=== PATIENT | female | born 1940 | race Caucasian/White ===

== ENCOUNTER 2022-08-16 09:48 | Emergency (ER) | payer OTHER ==
[2022-08-16 10:40] LABS: Absolute Lymphocytes (CBC) 0.9 K/uL (0.7-4.9); Hematocrit 36.6 % (36.0-45.0); Lymphocytes % 6.1 % (15.3-44.8); MCV 87.5 fL (80-100); MPV 8.1 fL (7.6-11.3); RBC Red Blood Cell Count 4.18 M/uL (3.86-4.86)
[2022-08-16 11:04] LABS: AST/SGOT 13 U/L (15-37); Albumin 2.8 g/dL (3.4-5.0); Alkaline Phosphatase 116 U/L (45-117); BUN Blood Urea Nitrogen 41 mg/dL (7-18); Bicarbonate 24 mmol/L (21-32); Bilirubin Total 0.6 mg/dL (0.2-1.0); Glomerular Filtration Rate 32 ml/min (=/>90); Glucose Level 157 mg/dL (74-106); Magnesium 3.1 mg/dL (1.8-2.4); NT PRO-BNP 244 pg/mL (<450); Potassium 4.8 mmol/L (3.5-5.1); Sodium Level 135 mmol/L (136-145); Troponin High Sensitivity 14.1 pg/mL (<58.9)
--- NOTE | 2022-08-16 11:15 | RAD REPORT ---
EXAM DESCRIPTION: US - Extremity Venous Uni Ltd - 08/16/2022 10:54 am CLINICAL HISTORY: SWELLING COMPARISON: None. TECHNIQUE: Real-time sonographic evaluation of the left lower extremity deep venous system was perfo rmed. FINDINGS: Hyperechoic and hypoechoic thrombus is present filling the lumen of the left common femora l, superficial femoral, popliteal and posterior tibial veins. Thrombus extends into the greater saphe nous vein at the junction with the common femoral vein. No mass or abnormal fluid collection in the l eft lower extremity. IMPRESSION: Left lower extremity deep venous thrombosis extending along the entire length of the lef t lower extremity.
[2022-08-16 11:37] LABS: ALT/SGPT < 10 U/L (12-78)
[2022-08-16 11:50] LABS: Protime INR 0.96
[2022-08-16] MEDS ORDERED: METHYLPREDNISOLONE 125 MG INJ ONE (12:02)
[2022-08-16] MEDS ORDERED: DIPHENHYDRAMINE 50 MG/ML VIAL ONE (12:02)
--- NOTE | 2022-08-16 12:32 | RAD REPORT ---
EXAM DESCRIPTION: CT - Chest For Pe Angio - 08/16/2022 12:07 pm CLINICAL HISTORY: DVT in LLE on US with SOB , history of lung cancer and COPD, shortness of breath COMPARISON: Extremity Venous Uni Ltd dated 08/16/2022 TECHNIQUE: Dynamically enhanced 3 mm thick images of the chest were obtained during administration o f approximately 150mL Isovue 370 IV contrast. Coronal and oblique MIP reconstruction images were gene rated and reviewed. Exam utilizes a protocol to evaluate the pulmonary arterial tree. All CT scans are performed using dose optimization technique as appropriate and may include automated exposure control or mA/KV adjustment according to patient size. FINDINGS: Left-sided pulmonary arterial tree is clear of thrombus. No acute or suspicious findings i n the left lung field. There is no left-sided pneumothorax or pleural effusion. Patient has a history of lung cancer but no comparison imaging at this facility. There is soft tissue mass in the right hilum encircling the the right mainstem bronchus and continuing inferiorly around the bronchus intermedius. There is a 3.5 x 2.5 centimeter soft tissue mass component that extends int o the right pulmonary artery. This is favored to be direct tumor invasion rather than a local pulmona ry embolus. Distal to this focal mass there is no downstream pulmonary emboli. There is atelectasis o f the adjacent lung parenchyma as well. Exact dimensions of the mass are difficult to obtain. There a ppears be early invasion in the posterior chest wall. No right-sided pleural effusion or pneumothorax . The aorta as imaged shows no acute or suspicious finding. No pericardial thickening or effusion. No left hilar mass or lymphadenopathy. The posteromedial and right perihilar malignant mass component extends into the subcarinal region. No upper mediastinal lymphadenopathy. No axillary lymphadenopathy. IMPRESSION: Malignant mass in the posteromedial right lung field involving the right hilum. The mass encircles the right mainstem bronchus and bronchus intermedius with extension into the subcarinal re gion of the mediastinum. A 3.5 centimeter soft tissue mass component of the malignancy is present within the distal right pulm onary artery at the bifurcation into the right middle lobe and right lower lobe arteries. This is fav ored to be tumor invasion rather than non tumor thrombus. No pulmonary emboli seen distal to this foc al filling defect.
--- NOTE | 2022-08-16 13:33 | EDPHYS ---
Physician Documentation [facility] Name: Zaira Hooker Age: 82 yrs Sex: Female : 1940 Arrival Date: 08/16/2022 Time: 09:53 Bed 5 Private MD: ED Physician Yisel Gastelum HPI: 08/16 11:07 This 82 yrs old Female presents to ER via Ambulatory with complaints of Breathing sd2 Difficulty, Leg Swelling. 11:07 82-year-old female presents with chief complaint of worsening shortness of breath and sd2 left lower extremity swelling. [place] due to concern for D[place]. She reports she initially had some difficulty with her breathing at the end of June and was seen the first week of July at her doctor's office and prescribed more albuterol for her COPD. She reports albuterol however was not helping at home. She followed up today and they noticed left lower extremity edema and had a concern for DVT and PE. The patient has no prior history of DVTs and is not currently on any blood thinners. However, she has not able to be very ambulatory due to the level of her COPD. She denies any significant pain to the lower extremity. She also reports a subjective fever that she noticed today.. Historical: - Allergies: 11:03 Codeine; jh5 11:59 Iodine (Hives); pre-medicating works; jl7 - PMHx: 11:03 lung cancer; copd; Hypertensive disorder; jh5 - Immunization history:: Adult Immunizations up to date, . - Social history:: Smoking status: Patient denies any tobacco usage or history of. ROS: 11:07 Eyes: Negative for injury, pain, redness, and discharge, ENT: Negative for injury, sd2 pain, and discharge, Cardiovascular: Negative for chest pain, palpitations, Positive for edema Respiratory: Positive for shortness of breath and cough. Negative for wheezing. Abdomen/GI: Negative for abdominal pain, nausea, vomiting, diarrhea. MS/Extremity: Negative for injury and deformity. Positive for swelling. Skin: Negative for injury, rash, and discoloration, Neuro: Negative for headache, numbness and tingling. 11:07 Constitutional: Positive for fever, Negative for body aches, chills, weight loss. Exam: 11:07 Constitutional: This is a well developed, well nourished patient who is awake, alert, sd2 and in no acute distress. Head/Face: Normocephalic, atraumatic. Eyes: EOMI, normal conjunctiva bilaterally Chest/axilla: Normal chest wall appearance and motion. Nontender with no deformity. Cardiovascular: Regular rate and rhythm with a normal S1 and S2. No gallops, murmurs, or rubs. 2+ distal pulses. Respiratory: Lungs have equal breath sounds bilaterally, clear to auscultation and percussion. No rales, rhonchi or wheezes noted. No increased work of breathing, no retractions or nasal flaring. Abdomen/GI: Soft, non-tender, with normal bowel sounds. No guarding or rebound. No evidence of tenderness throughout. Skin: Warm, dry with normal turgor. Normal color with no rashes, no lesions, and no evidence of cellulitis. MS/ Extremity: Pulses equal, no cyanosis. Neurovascular intact. Full, normal range of motion. LLE edema present with some mild discoloration of the leg Psych: Awake, alert, with orientation to person, place and time. Behavior, mood, and affect are within normal limits. 11:21 ECG was reviewed by the Attending Physician. NSR, rate 83, no STEMI criteria, premature sd2 supraventricular complexes present Vital Signs: 10:59 BP 111 / 63; Pulse 91; Resp 22; Pulse Ox 94% ; Weight 72.57 kg; Height 5 ft. 7 in. jh5 (170.18 cm); Pain 6/10; 11:50 BP 130 / 61; Pulse 85; Resp 15; Pulse Ox 94% ; jl7 12:30 BP 116 / 53; Pulse 82; Resp 15; Pulse Ox 96% ; jl7 14:03 BP 120 / 62; Pulse 80; Resp 17; Temp 97.7(O); Pulse Ox 96% ; Pain 3/10; jh6 10:59 Body Mass Index 25.06 (72.57 kg, 170.18 cm) 5 MDM: 10:59 Patient medically screened. sd2 11:07 Differential diagnosis: Differential diagnosis includes but is not limited to: ACS, sd2 DVT/PE, pneumothorax, dissection, musculoskeletal, anxiety, anemia, electrolyte abnormality, pneumonia, CHF, COPD among others. Data reviewed: vital signs, nurses notes. 13:30 Data reviewed: lab test result(s), EKG, radiologic studies. Counseling: I had a sd2 detailed discussion with the patient and/or guardian regarding: the historical points, exam findings, and any diagnostic results supporting the discharge/admit diagnosis, lab results, radiology results, the need for outpatient follow up, to return to the emergency department if symptoms worsen or persist or if there are any questions or concerns that arise at home. Medical screen evaluation completed[facility] ED course: Labs and imaging reviewed. Labs grossly WNCL aside from elevated D-dimer. US positive for DVT in LLE. Will treat with dose of Lovenox in ED and give prescription for patient to start Eliquis. No evidence of PE on CT but does show possible recurrence of patient's cancer with malignant appearing mass. Pt has not followed up regarding her cancer since pre-pandemic. [facility] this and need for biopsy. She is comfortable with plan for discharge and outpatient follow up. Verbalizes understanding of strict return precautions. . 08/16 09:54 Order name: CBC with Diff; Complete Time: 10:43 08/16 09:54 Order name: CMP; Complete Time: 11:51 08/16 09:54 Order name: Magnesium; Complete Time: 11:51 08/16 09:54 Order name: Troponin High Sensitivity; Complete Time: 11:51 08/16 09:54 Order name: BNP; Complete Time: 11:51 08/16 09:54 Order name: Procalcitonin; Complete Time: 11:51 08/16 09:54 Order name: D-Dimer; Complete Time: 11:51 08/16 09:54 Order name: US Extremity Venous Unilateral Ltd; Complete Time: 11:51 08/16 09:54 Order name: XRAY Chest (1 view) 08/16 11:07 Order name: CT Chest For PE Angio; Complete Time: 13:19 08/16 11:07 Order name: Ptt, Activated; Complete Time: 11:51 08/16 11:07 Order name: PT-INR; Complete Time: 11:51 sd2 Administered Medications: 11:53 Drug: SOLU-Medrol (methylPrednisoLONE) 125 mg Route: IVP; Site: left antecubital; jl7 11:55 Drug: Benadryl (diphenhydrAMINE) 25 mg Route: IVP; Site: left antecubital; 7 13:37 Drug: Lovenox (enoxaparin) 1 mg/kg Route: Sub-Q; Site: abdomen; [facility] Disposition Summary: 08/16/22 13:33 Discharge Ordered Location: Home sd2 Problem: new sd2 Symptoms: are unchanged sd2 Condition: Stable sd2 Diagnosis - DVT of Left Lower Extremity sd2 - Pulmonary mass sd2 Followup: sd2 - With: Private Physician - When: 2 - 3 days - Reason: Recheck today's complaints, Continuance of care, Re-evaluation by your physician Discharge Instructions: - Discharge Summary Sheet sd2 - Deep Vein Thrombosis sd2 - Lung Mass sd2 Forms: - Medication Reconciliation Form sd2 - Thank You Letter sd2 - Antibiotic Education sd2 - Prescription Opioid Use sd2 Prescriptions: - Eliquis DVT-PE Treat 30D Start 5 mg (74 tabs) Oral tablets,dose pack - take 1 tablet by ORAL route once daily Take as directed on package labeling; 1 [facility] packet; Refills: 0, Product Selection Permitted Signatures: Dispatcher [employer] Marco Machuca RN RN jl7 Mechelle Darnell RN RN jh5 Brandi Cárdenas RN RN jh6 Yisel Gastelum MD MD sd2 Corrections: (The following items were deleted from the chart) 11:03 11:03 Allergies: No Known Allergies; [place] [id number]
--- NOTE | 2022-08-16 13:33 | ER ---
Nurse's Notes [facility] Name: Zaira Hooker Age: 82 yrs Sex: Female : 1940 Arrival Date: 08/16/2022 Time: 09:53 Bed 5 Private MD: Diagnosis: DVT of Left Lower Extremity;Pulmonary mass Presentation: 08/16 10:59 Chief complaint: Patient states: pt went to [place] [facility] and they noticed her legs were jh5 two different sizes. Pt left leg significantly larger than right. Coronavirus screen: Vaccine status: Patient reports receiving the 2nd dose of the covid vaccine. Client denies travel out of the [place] in the last 14 days. Ebola Screen: Patient negative for fever greater than or equal to 101.5 degrees Fahrenheit, and additional compatible Ebola Virus Disease symptoms Patient denies exposure to infectious person. Patient denies travel to an Ebola-affected area in the 21 days before illness onset. Initial Sepsis Screen: Does the patient meet any 2 criteria? No. Patient's initial sepsis screen is negative. Does the patient have a suspected source of infection? No. Patient's initial sepsis screen is negative. Risk Assessment: Do you want to hurt yourself or someone else? Patient reports no desire to harm self or others. Onset of symptoms. 10:59 Method Of Arrival: Ambulatory [facility] 10:59 Acuity: LILO 2 jh5 Triage Assessment: 11:03 General: Appears uncomfortable, slender, well groomed, Behavior is calm, cooperative, jh5 appropriate for age. Pain:. Respiratory: Reports shortness of breath at rest Onset: The symptoms/episode began/occurred gradually, the patient has moderate shortness of breath. Historical: - Allergies: 11:03 Codeine; jh5 11:59 Iodine (Hives); pre-medicating works; jl7 - PMHx: 11:03 lung cancer; copd; Hypertensive disorder; jh5 - Immunization history:: Adult Immunizations up to date, . - Social history:: Smoking status: Patient denies any tobacco usage or history of. Screenin:03 Abuse screen: Denies threats or abuse. Denies injuries from another. Nutritional jh6 screening: No deficits noted. Tuberculosis screening: No symptoms or risk factors identified. Fall Risk IV access (20 points). Ambulatory Aid- None/Bed Rest/Nurse Assist (0 pts). Assessment: 10:10 Reassessment: Pt called for triage, no answer. 5 10:30 Reassessment: Pt had been taken to ultrasound prior to triage. Pt still not back in [facility] lobby at this time, however, LUIS (executor of estate) went down to ultrasound to start an IV and obtain blood from patient - care in progress. 11:00 Reassessment: Patient is alert, oriented x 3, equal unlabored respirations, skin jh6 warm/dry/pink. pt placed into room 5 at this time. placed in gown and on monitor. Pt able to speak in complete sentences. Pt reported that she was seen at [place] this am for increased SOB but was sent to ER after noting increased swelling to left extremity. 11:09 Reassessment: Dr. Gastelum notified of critical lab value: Ddimer 37,479. 11:58 Reassessment: Pt reports iodine allergy, Dr. Gastelum notified, see [facility] for orders. [facility] 14:01 Reassessment: Patient and/or family updated on plan of care and expected duration. Pain 6 level reassessed. Patient is alert, oriented x 3, equal unlabored respirations, skin warm/dry/pink. still having SOB when moving around Patient states symptoms have improved. Cardiovascular: Rhythm is irregular. Respiratory: Airway is patent Respiratory effort is even, relaxed, Respiratory pattern is regular. 14:04 Respiratory: [facility] Vital Signs: 10:59 BP 111 / 63; Pulse 91; Resp 22; Pulse Ox 94% ; Weight 72.57 kg; Height 5 ft. 7 in. [facility] (170.18 cm); Pain 6/10; 11:50 BP 130 / 61; Pulse 85; Resp 15; Pulse Ox 94% ; jl7 12:30 BP 116 / 53; Pulse 82; Resp 15; Pulse Ox 96% ; jl7 14:03 BP 120 / 62; Pulse 80; Resp 17; Temp 97.7(O); Pulse Ox 96% ; Pain 3/10; jh6 10:59 Body Mass Index 25.06 (72.57 kg, 170.18 cm) [facility] ED Course: 09:53 Patient arrived in ED. rg4 09:53 Yisel Gastelum MD is Attending Physician. sd2 10:30 Initial lab(s) drawn, by me, sent to lab. Inserted saline lock: 20 gauge in left kj1 antecubital area, using aseptic technique. Blood collected. 10:31 D-Dimer Sent. kj1 10:31 Procalcitonin Sent. kj1 10:31 Troponin High Sensitivity Sent. kj1 10:31 BNP Sent. kj1 10:31 Magnesium Sent. kj1 10:31 CMP Sent. kj1 10:31 CBC with Diff Sent. kj1 10:44 US Extremity Venous Unilateral Ltd In Process Unspecified. EDMS 11:02 Brandi Cárdenas, RN is Primary Nurse. jh6 11:02 Placed in gown. Bed in low position. Call light in reach. Side rails up X 1. Adult w/ jh6 patient. Client placed on continuous cardiac and pulse oximetry monitoring. NIBP monitoring applied. earth mover on. 11:03 Triage completed. jh5 11:03 Arm band placed on right wrist. jh5 11:10 EKG done, by ED staff, reviewed by Yisel Gastelum MD. jl7 11:17 XRAY Chest (1 view) In Process Unspecified. EDMS 12:08 CT Chest For PE Angio In Process Unspecified. EDMS 14:04 No provider procedures requiring assistance completed. IV discontinued, intact, jh6 bleeding controlled, No redness/swelling at site. Pressure dressing applied. Administered Medications: 11:53 Drug: SOLU-Medrol (methylPrednisoLONE) 125 mg Route: IVP; Site: left antecubital; jl7 11:55 Drug: Benadryl (diphenhydrAMINE) 25 mg Route: IVP; Site: left antecubital; jl7 13:37 Drug: Lovenox (enoxaparin) 1 mg/kg Route: Sub-Q; Site: abdomen; jh6 Medication: 14:04 VIS not applicable for this client. jh6 Outcome: 13:33 Discharge ordered by . sd2 14:04 Discharged to home via wheelchair. jh6 14:04 Condition: stable 14:04 Discharge instructions given to patient, family, Instructed on discharge instructions, follow up and referral plans. Demonstrated understanding of instructions, follow-up care, medications, Prescriptions given X 1. 14:05 Patient left the ED. 6 Signatures: Dispatcher [employer] EDMS Myra Aguilar RN RN Lucina Garcia rg4 Marco Gay RN RN jl7 Mary Arrington kj1 Mechelle Darnell RN RN jh5 Brandi Cárdenas RN RN jh6 Yisel Gastelum MD MD sd2 Corrections: (The following items were deleted from the chart) 11:03 11:03 Allergies: No Known Allergies; [place] jh5
[2022-08-17 16:36] VITALS: O2SAT 96
[2022-08-17 16:38] VITALS: BP 120/62; TEMP 97.7
--- NOTE | 2022-08-18 13:42 | EKG ---
Test Date: 2022-08-16 Test Time: 11:04:59 [employer] Sales Representative: MERCEDES MEASUREMENT RESULTS: Intervals: Rate: 83 AR: 116 QRSD: 84 QT: 384 QTc: 451 [place]: P: 59 AR: 116 QRS: 5 T: 67 INTERPRETIVE STATEMENTS: Sinus rhythm with premature supraventricular complexes Otherwise normal ECG Compared to ECG 06/09/2010 11:01:41 Atrial premature complex(es) now present Electronically Signed On 08-18-22 13:39:10 CDT by Roger Blanco
== END 2022-08-16 14:05 | disposition home or self-care (01) ==
LOC: ER 09:48
DX: I82.402 Acute embolism and thrombosis of unspecified deep veins of left lower extremity (principal); J98.4 Other disorders of lung; J44.9 Chronic obstructive pulmonary disease, unspecified; I10 Essential (primary) hypertension; Z85.118 Personal history of other malignant neoplasm of bronchus and lung; Z88.5 Allergy status to narcotic agent; Z91.048 Other nonmedicinal substance allergy status
CPT/HCPCS: 85025; 36415; 83735; 85610; 85379; 85730; 84484; 80053; 84145; 83880; 71275; 71045; 93971; Q9967; J1200; J2930; 93005; 96372; 96374; 96375; 99284